=== PATIENT | female | born 1940 | race Caucasian/White ===

== ENCOUNTER 2018-05-14 11:44 | Outpatient (RCR) | payer MEDICARE, OTHER ==
[2018-05-14 12:18] LABS: PROTHROMBIN TIME PATIENT 28.7 SEC (12.2-14.7)
[2018-05-14 12:19] LABS: INR 2.7 (0.8-1.4)
== END 2018-08-12 | disposition home or self-care (01) ==
LOC: LAB FS 11:44 → EDSTATUS 11:44
PROVIDERS: ATTEND Pediatrics
DX: I48.0 Paroxysmal atrial fibrillation (principal)
CPT/HCPCS: 36415; 85610

== ENCOUNTER → 2018-09-17 | Outpatient (CLI) | payer MEDICARE, OTHER ==
[2018-09-17 11:50] LABS: HEMOGLOBIN 11.8 G/DL (11.5-16.0); MEAN PLATELET VOLUME 10.3 FL (7.4-10.4); RED CELL DISTRIBUTION WIDTH 17.3 % (10.0-14.5); WHITE BLOOD COUNT 4.7 10^3/uL (4.3-11.0)
[2018-09-17 12:26] LABS: BILIRUBIN,DIRECT 0.2 MG/DL (0.0-0.3); BILIRUBIN,INDIRECT 0.3 MG/DL; BILIRUBIN,TOTAL 0.5 MG/DL (0.1-1.0); TOTAL PROTEIN 6.8 GM/DL (6.4-8.2)
== END ==
LOC: LAB 11:33
PROVIDERS: ATTEND Internal Medicine Rheumatology
DX: M05.79 Rheumatoid arthritis with rheumatoid factor of multiple sites without organ or systems involvement (principal); Z79.899 Other long term (current) drug therapy
CPT/HCPCS: 36415; 80076; 85027

== ENCOUNTER → 2018-11-21 | Outpatient (CLI) | payer MEDICARE, OTHER | LOC: CARD 13:45 | PROVIDERS: ATTEND Internal Medicine Interventional Cardiology | DX: I08.2 Rheumatic disorders of both aortic and tricuspid valves (principal); I48.0 Paroxysmal atrial fibrillation; I25.10 Atherosclerotic heart disease of native coronary artery without angina pectoris | CPT/HCPCS: 93306 ==

== ENCOUNTER → 2018-11-21 | Outpatient (CLI) | payer MEDICARE, OTHER ==
--- NOTE | 2018-11-21 19:10 | Diagnostic Imaging Report ---
PROCEDURE: US Thyroid. TECHNIQUE: Multiple real-time grayscale images were obtained of the thyroid in various projections. INDICATION: Goiter. COMPARISON: There are no prior studies available for comparison. FINDINGS: The thyroid gland is not enlarged. The right lobe measures 1.7 x 1.1 x 0.8 cm while the left lobe is estimated to be 3.3 x 0.9 x 0.7 cm (normal gland size 4-5 x 2 x cm or less). Within the left lobe there is a 1.0 x 0.5 x 0.5 cm solid lesion. This finding is of uncertain etiology. If further imaging is desired, then a nuclear medicine thyroid scan would be recommended. If a tissue diagnosis is desired, an ultrasound-guided biopsy could be performed. If the nuclear medicine study is not performed and there is no intervention at this time, then a short-term (6-month) followup thyroid ultrasound exam would be recommended. The right lobe of the thyroid is fairly homogeneous. IMPRESSION: 1. There is a roughly 1 cm solid nodule in the left lobe of the thyroid. This finding is of uncertain etiology. Considerations and recommendations as above. 2. The right lobe of the thyroid is unremarkable. Dictated by: Dictated on workstation # [id number]
== END ==
LOC: RAD 12:55
PROVIDERS: ATTEND Otolaryngology Otolaryngology/Facial Plastic Surgery
DX: E04.1 Nontoxic single thyroid nodule (principal)
CPT/HCPCS: 76536

== ENCOUNTER → 2018-12-06 | Outpatient (CLI) | payer MEDICARE, OTHER ==
[2018-12-06 12:09] LABS: BACTERIA,URINE FEW /HPF; BILIRUBIN,URINE NEGATIVE (NEGATIVE); CLARITY,URINE CLEAR; COLOR,URINE YELLOW; GLUCOSE, URINE (UA) NEGATIVE (NEGATIVE); KETONES,URINE NEGATIVE (NEGATIVE); LEUKOCYTE ESTERASE ,URINE NEGATIVE (NEGATIVE); NITRITE,URINE NEGATIVE (NEGATIVE); PH,URINE 7.5 (5-9); PROTEIN,URINE NEGATIVE (NEGATIVE); UROBILINOGEN,URINE 0.2 MG/DL (NORMAL)
== END ==
LOC: LAB FS 11:51
PROVIDERS: ATTEND Pediatrics
DX: R30.0 Dysuria (principal)
CPT/HCPCS: 81000

== ENCOUNTER → 2018-12-23 | Outpatient (CLI) | payer MEDICARE, OTHER ==
[~2018-12-23] MED LIST: CARV12.53 PO; CATHETER FLUSH 10 ML SYR IV PRN; COLC0.6T53 PO; CYCL1DRO OU; DIATRIZOATE MEGLUM/SODIUM 37% 120 ML (GASTROGRAFIN) PO ONE; FOLI1TAB24 PO; HOLD METFORMIN - RECEIVED CONTRAST 20 ML VIAL IV SCH; IOHEXOL 350 MG/ML 100 ML (OMNIPAQUE 350) VIAL IV ONE; LEVO125T6 PO; LOSA50TA63 PO; METH25VI57 SQ; METO5TAB6 PO; NS 100 ML (IVPB) BAG IV ONE; POTA10TA52 PO; POTA20TA28 PO; WARF-48 PO; WARF7.5T49 PO
--- NOTE | 2018-12-23 17:29 | Diagnostic Imaging Report ---
PROCEDURE: CT chest, abdomen, and pelvis with contrast. TECHNIQUE: Multiple contiguous axial images were obtained through the chest, abdomen, and pelvis after the administration of intravenous contrast. Auto Exposure Controls were utilized during the CT exam to meet ALARA standards for radiation dose reduction. INDICATION: Night sweats. Fatigue. COMPARISON: None. FINDINGS: CHEST: Calcified granuloma in the right lung base. The lungs are otherwise clear. Tiny right pleural effusion. No mediastinal, hilar, or axillary lymphadenopathy. Normal heart size. No pericardial effusion. Cardiac pacer. Normal caliber thoracic aorta and central pulmonary arteries. No acute osseous findings. ABDOMEN AND PELVIS: Cholecystectomy. Multiple low-attenuation lesions in the pancreas. The largest of these is in the head of the pancreas and measures up to 1.2 cm. The second largest is in the tail of the pancreas and measures up to 0.9 cm. The liver, pancreas, adrenals, kidneys, collecting systems, and bladder are negative. Appendectomy. Hysterectomy. Small umbilical hernia measuring up to 2 cm in width. This contains no bowel loops. No lymphadenopathy. No evidence of bowel obstruction. There is focal bowel wall thickening in the mid descending colon and adjacent hyperemia. There is also soft tissue attenuation that appears to demonstrate washout on delayed imaging suspicious for a soft tissue mass intraluminally measuring up to 4.3 cm. Postoperative changes in the lumbar spine. No acute osseous findings. IMPRESSION: 1. Focal bowel wall thickening and soft tissue attenuation within the colon suspicious for a mass in the mid descending colon. Recommend endoscopy for further evaluation. No lymphadenopathy, liver lesions, or lung nodules suspicious for metastatic disease. There is diffuse hyperemia of the mesentery in this region. 2. Numerous low-attenuation lesions in the pancreas are indeterminate. Metastatic disease would be unlikely. Recommend nonemergent dedicated MRI without and with IV contrast for further evaluation. 3. No acute CT findings in the chest. Dictated by: Dictated on workstation # [id number]
== END ==
LOC: RAD 15:00
PROVIDERS: ATTEND Pediatrics
DX: K63.89 Other specified diseases of intestine (principal); K86.9 Disease of pancreas, unspecified; K59.8 Other specified functional intestinal disorders
CPT/HCPCS: 71260; 74177

== ENCOUNTER 2018-12-25 06:06 | Outpatient (CLI) | payer MEDICARE, OTHER ==
[~2018-12-25] VITALS: Ht 172.7 cm; Wt 75.0 kg
[2018-12-25] MEDS ORDERED: FOLI1TAB24 PO (09:17)
[2018-12-25] MEDS ORDERED: METO5TAB6 PO (09:17)
[2018-12-25] MEDS ORDERED: CARV12.53 PO (09:17)
[2018-12-25] MEDS ORDERED: POTA20TA28 PO (09:17)
[2018-12-25] MEDS ORDERED: WARF7.5T49 PO (09:17)
[2018-12-25] MEDS ORDERED: METH25VI57 SQ (09:17)
[2018-12-25] MEDS ORDERED: WARF-48 PO (09:17)
[2018-12-25] MEDS ORDERED: COLC0.6T53 PO (09:17)
[2018-12-25] MEDS ORDERED: LOSA50TA63 PO (09:17)
[2018-12-25] MEDS ORDERED: CYCL1DRO OU (09:17)
[2018-12-25] MEDS ORDERED: LEVO125T6 PO (09:17)
[2018-12-25] MEDS ORDERED: POTA10TA52 PO (09:17)
== END 2018-12-25 10:26 | disposition home or self-care (01) ==
LOC: PREOP 06:06
PROVIDERS: ATTEND Pediatrics
DX: Z01.818 Encounter for other preprocedural examination (principal)

== ENCOUNTER 2018-12-26 07:23 | Day surgery (SDC) | payer MEDICARE, OTHER ==
[2018-12-26] VITALS (10 sets, daily range): BP systolic 115–164; BP diastolic 67–89
[~2018-12-26 07:23] MED LIST changes: -CATHETER FLUSH 10 ML SYR IV PRN; -DIATRIZOATE MEGLUM/SODIUM 37% 120 ML (GASTROGRAFIN) PO ONE; -HOLD METFORMIN - RECEIVED CONTRAST 20 ML VIAL IV SCH; -IOHEXOL 350 MG/ML 100 ML (OMNIPAQUE 350) VIAL IV ONE; -NS 100 ML (IVPB) BAG IV ONE
[2018-12-26] MEDS ORDERED: NS IV 500 ML 500 ML ONE (07:34)
[2018-12-26] MEDS ORDERED: NS IV 500 ML 500 ML IV PRN (07:41)
[2018-12-26] MEDS ORDERED: MIDAZOLAM 2 MG/2 ML (VERSED) VIAL IVP ONE (07:45)
[2018-12-26] MEDS ORDERED: fentaNYL INJECTION 100 MCG/2 ML AMP IVP ONE (07:45)
[2018-12-26] MEDS ORDERED: MIDAZOLAM 5 MG/5 ML (VERSED) VIAL ONE (08:24)
[2018-12-26] MEDS ORDERED: fentaNYL INJECTION 100 MCG/2 ML AMP ONE (08:24)
--- NOTE | 2018-12-26 08:47 | Endoscopy Procedure Report ---
Colonoscopy Procedure Performed: Colonoscopy Pre-Operative Diagnosis: thickned bowel by CT Post-Operative Diagnosis: non Director Of Corporate Marketing: None. Indications for Procedure: as above Procedure Details: Informed consent was obtained, the risks, benefits and alternatives to the procedure were explained to the patient. The Alejandra Mack, a 78 yr old female, was brought to to surgery area, sedated with 4 mg of Versed and 100 ug of fentanyl. She was placed in the left lateral decubitus position. Under direct visualization the scope was passed easily to the hepatic flexure by landmarks. despite body position change and pressure unableto advance scope further Scope was carefully withdrawn. Findings: Ascending Colon: not seen as scope only able to be advanced to hepatic flexure Transverse Colon: none Descending/Sigmoid: none Rectum: none Estimated Blood Loss: 0 mL Specimens: none Complications: None; patient tolerated the procedure well. Final Diagnosis: essentailly normal colonoscopy to hepatic flexure MILAN MCGRAW MD Dec 26, 2018 08:47
== END 2018-12-26 09:35 | disposition home or self-care (01) ==
LOC: ENDO 07:23
PROVIDERS: ATTEND Pediatrics
DX: K63.89 Other specified diseases of intestine (principal); E03.9 Hypothyroidism, unspecified; K76.89 Other specified diseases of liver; Z20.5 Contact with and (suspected) exposure to viral hepatitis; Z88.5 Allergy status to narcotic agent; Z88.8 Allergy status to other drugs, medicaments and biological substances; Z88.1 Allergy status to other antibiotic agents; Z91.040 Latex allergy status; Z79.01 Long term (current) use of anticoagulants; Z79.899 Other long term (current) drug therapy

== ENCOUNTER → 2019-01-17 | Outpatient (CLI) | payer MEDICARE, OTHER ==
[2019-01-17 12:18] LABS: HEMOGLOBIN 10.9 G/DL (11.5-16.0); MEAN PLATELET VOLUME 10.7 FL (7.4-10.4); RED CELL DISTRIBUTION WIDTH 17.6 % (10.0-14.5); WHITE BLOOD COUNT 4.4 10^3/uL (4.3-11.0)
[2019-01-17 12:20] LABS: BILIRUBIN,URINE NEGATIVE (NEGATIVE); CLARITY,URINE CLEAR; COLOR,URINE YELLOW; GLUCOSE, URINE (UA) NEGATIVE (NEGATIVE); KETONES,URINE NEGATIVE (NEGATIVE); LEUKOCYTE ESTERASE ,URINE 1+ (NEGATIVE); NITRITE,URINE NEGATIVE (NEGATIVE); PH,URINE 8 (5-9); PROTEIN,URINE NEGATIVE (NEGATIVE)
[2019-01-17 12:36] LABS: BACTERIA,URINE FEW /HPF
[2019-01-17 12:45] LABS: ALANINE AMINOTRANSFERASE 23 U/L (0-55); ALBUMIN 3.6 GM/DL (3.2-4.5); ALKALINE PHOSPHATASE 92 U/L (40-136); BILIRUBIN,TOTAL 0.7 MG/DL (0.1-1.0); BUN/CREATININE RATIO 14; CARBON DIOXIDE 32 MMOL/L (21-32); CHLORIDE 97 MMOL/L (98-107); CREATININE SERUM 0.73 MG/DL (0.60-1.30); GFR ESTIMATED > 60; GLUCOSE 82 MG/DL (70-105); POTASSIUM 3.7 MMOL/L (3.6-5.0); SODIUM 136 MMOL/L (135-145); TOTAL PROTEIN 6.3 GM/DL (6.4-8.2)
--- NOTE | 2019-01-17 12:51 | Diagnostic Imaging Report ---
EXAMINATION: Chest one view at 12:30 p.m. INDICATION: Rheumatoid arthritis. FINDINGS: The heart size is within normal limits and stable when compared to the CT chest exam performed on 12/23/2018. The left-sided pacemaker noted previously is again evident and seems stable in position. The lungs are generally clear. There is no evidence for pneumonia or failure. However, there is slight blunting of both costophrenic angles and there could be a small amount of fluid in each lung base. This finding was not present on the prior exam. The mediastinum is not widened. The osseous structures are intact. IMPRESSION: There may be a small amount of fluid in each lung base. There is no acute cardiopulmonary abnormality noted otherwise. Dictated by: Dictated on workstation # [id number]
== END ==
LOC: RAD 11:52
PROVIDERS: ATTEND Internal Medicine Rheumatology
DX: M05.79 Rheumatoid arthritis with rheumatoid factor of multiple sites without organ or systems involvement (principal); Z95.0 Presence of cardiac pacemaker
CPT/HCPCS: 36415; 71045; 80053; 81000; 84443; 85027; 85652; 86038; 86141; 86200; 86431; 87077; 87088

== ENCOUNTER 2019-01-30 04:32 | Emergency (ER) | payer MEDICARE, OTHER ==
[~2019-01-30] VITALS: Ht 175 cm; Wt 75.0 kg
--- NOTE | 2019-01-30 04:52 | ED General ---
General Chief Complaint: Trauma-Non Activation Stated Complaint: FALL, BACK PAIN Source of Information: Patient Exam Limitations: No Limitations History of Present Illness Date Seen by Provider: Jan 30, 2019 Time Seen by Provider: 04:45 Initial Comments Patient presents by EMS with complaint that she had fallen and couldn't get up. Patient was in bed and rolled over, and states she rolled out of bed on the floor. States she did not hurt herself but was too weak to get up and laid there for a while before her was aware that she needed help. He was unable to get her up, so they called 911. Patient with history of arthritis and generalized joint pain and spinal pain, states no worse than normal. Overall has been getting progressively weaker the past few months, has seen her PCP and been evaluated with blood work with no abnormalities. Allergies and Home Medications Allergies Coded Allergies: ciprofloxacin (Verified Allergy, Unknown, 12/25/18) clindamycin (Verified Allergy, Unknown, 12/25/18) hydralazine (Verified Allergy, Unknown, 12/25/18) isradipine (Verified Allergy, Unknown, 12/25/18) latex (Verified Allergy, Unknown, 12/25/18) lisinopril (Verified Allergy, Unknown, 12/25/18) morphine (Verified Allergy, Unknown, 12/25/18) nifedipine (Verified Allergy, Unknown, 12/25/18) spironolactone (Verified Allergy, Unknown, 12/25/18) tizanidine (Verified Allergy, Unknown, 12/25/18) warfarin (Verified Allergy, Unknown, 12/25/18) Home Medications Carvedilol 12.5 Mg Tablet, 12.5 MG PO BID, (Reported) Colchicine 0.6 Mg Tablet, 0.6 MG PO DAILY, (Reported) Cyclosporine 1 Each Droperette, 1 DROP OU BID, (Reported) Folic Acid 1 Mg Tablet, 1 MG PO DAILY, (Reported) Levothyroxine Sodium 125 Mcg Tablet, 125 MCG PO DAILY, (Reported) Losartan Potassium 50 Mg Tablet, 50 MG PO DAILY, (Reported) Methotrexate Sodium 25 Mg/1 Ml Vial, 6 MG SQ WEEK, (Reported) Metolazone 5 Mg Tablet, 5 MG PO DAILY, (Reported) Potassium Bicarbonate/Cit AC 10 Meq Tablet.eff, 10 MEQ PO BID, (Reported) Potassium Bicarbonate/Cit AC 20 Meq Tablet.eff, 20 MEQ PO BID, (Reported) Warfarin Sodium 5 Mg Tablet, 5 MG PO MoWeFr, (Reported) Warfarin Sodium 7.5 Mg Tablet, 7.5 MG PO SuTuThSa, (Reported) Patient Home Medication List Home Medication List Reviewed: Yes Review of Systems Review of Systems Constitutional: No chills, No dizziness, No fever, No malaise; weakness; No weight gain, No weight loss EENTM: No hoarseness, No throat pain Respiratory: No cough, No dyspnea on exertion, No short of breath Cardiovascular: No chest pain, No palpitations, No syncope Gastrointestinal: No abdominal pain, No hematemesis, No loss of appetite, No nausea, No vomiting Genitourinary: No dysuria, No frequency Musculoskeletal: see HPI, back pain, joint pain, muscle weakness, neck pain Skin: No change in color, No lesions, No rash Psychiatric/Neurological: Denies Headache, Denies Numbness, Denies Paresthesia, Denies Seizure; Weakness Past [id number]-[id number]-[id number] Hx Past Med/Social Hx: Reviewed Nursing Past Med/Soc Hx Patient Social History Recent Foreign Travel: No Contact w/Someone Who Travel: No Recent Hopitalizations: No Seasonal Allergies Seasonal Allergies: No Past Medical History Surgeries: Yes (R TKR x3, L TKR, ) Gallbladder, Hysterectomy, Oophorectomy, Pacemaker, Tonsillectomy Respiratory: No Cardiac: Yes (pacemaker) Hypertension Neurological: No SOUS CHEF History: Hysterectomy Genitourinary: Yes Gastrointestinal: Yes Gastroesophageal Reflux, Chronic Constipation, Chronic Diarrhea Musculoskeletal: Yes Arthritis, Fibromyalgia, Rheumatoid Arthritis Endocrine: Yes Hypothyroidsim HEENT: Yes Cancer: Yes Skin What Type of Treatment Did You: Surgical Intervention Psychosocial: No Integumentary: No Physical Exam Vital Signs Vital Signs - First Documented 01/30/19 04:32 Temp 37.5 Pulse 82 Resp 16 B/P (MAP) 139/59 (85) Pulse Ox 98 O2 Delivery Room Air Capillary Refill : Height, Weight, BMI Height: '" Weight: 200lbs. oz. 90.675386rk; 25.14 BMI Method: General Appearance: No Apparent Distress, WD/WN HEENT: Normal ENT Inspection, Pharynx Normal, Moist Mucous Membranes Neck: Normal Inspection, Non Tender, Supple Respiratory: Chest Non Tender, Lungs Clear, Normal Breath Sounds Cardiovascular: Regular Rate, Rhythm, No Edema, No JVD, No Murmur Gastrointestinal: Normal Bowel Sounds, Non Tender, Soft Back: Normal Inspection, No CVA Tenderness, No Vertebral Tenderness Extremity: Normal Capillary Refill, Normal Inspection, Non Tender, No Calf Tenderness, No Pedal Edema Neurologic/Psychiatric: Alert, Oriented x3, No Motor/Sensory Deficits, Normal Mood/Affect, e commerce web developer II-XII Norm as Tested Skin: Normal Color, Warm/Dry Focused Exam Lactate Level 01/30/19 05:35: Lactic Acid Level Laboratory Tests Test 01/30/19 05:35 Progress/Results/Core Measures Suspected Sepsis SIRS Temperature: Pulse: Respiratory Rate: Laboratory Tests 01/30/19 05:08: White Blood Count 7.5 Blood Pressure / Mean: 01/30/19 05:35: Laboratory Tests 01/30/19 05:08: Platelet Count 87L Results/Orders Lab Results Laboratory Tests Test 01/30/19 05:08 01/30/19 05:35 Range/Units White Blood Count 7.5 4.3-11.0 10^3/uL Red Blood Count 4.16 L 4.35-5.85 10^6/uL Hemoglobin 11.3 L 11.5-16.0 G/DL Hematocrit 35 35-52 % Mean Corpuscular Volume 85 80-99 FL Mean Corpuscular Hemoglobin 27 25-34 PG Mean Corpuscular Hemoglobin Concent 32 32-36 G/DL Red Cell Distribution Width 19.1 H 10.0-14.5 % Platelet Count 87 L 130-400 10^3/uL Mean Platelet Volume 12.4 H 7.4-10.4 FL Neutrophils (%) (Auto) 72 42-75 % Lymphocytes (%) (Auto) 15 12-44 % Monocytes (%) (Auto) 12 0-12 % Eosinophils (%) (Auto) 0 0-10 % Basophils (%) (Auto) 0 0-10 % Neutrophils # (Auto) 5.4 1.8-7.8 X 10^3 Lymphocytes # (Auto) 1.1 1.0-4.0 X 10^3 Monocytes # (Auto) 0.9 0.0-1.0 X 10^3 Eosinophils # (Auto) 0.0 0.0-0.3 10^3/uL Basophils # (Auto) 0.0 0.0-0.1 10^3/uL Urine Color YELLOW Urine Clarity CLEAR Urine pH 7.5 5-9 Urine Specific [place] 1.015 L 1.016-1.022 Urine Protein TRACE H NEGATIVE Urine Glucose (UA) NEGATIVE NEGATIVE Urine Ketones NEGATIVE NEGATIVE Urine Nitrite NEGATIVE NEGATIVE Urine Bilirubin NEGATIVE NEGATIVE Urine Urobilinogen 0.2 NORMAL MG/DL Urine Leukocyte Esterase NEGATIVE NEGATIVE Urine RBC (Auto) NEGATIVE NEGATIVE Urine RBC NONE /HPF Urine WBC 0-2 /HPF Urine Squamous Epithelial Cells 2-5 /HPF Urine Crystals NONE /LPF Urine Bacteria TRACE /HPF Urine Casts NONE /LPF Urine Mucus NONE /LPF Urine Culture Indicated NO My Orders Orders - SCOTT GALE DO Ed Iv/Invasive Line Start (01/30/19 04:46) Orthostatic Vital Signs (Adult (01/30/19 04:46) Cbc With Automated Diff (01/30/19 04:46) Comprehensive Metabolic Panel (01/30/19 04:46) Lactic Acid Analyzer (01/30/19 04:46) Urinalysis (01/30/19 04:46) Troponin I Fs (01/30/19 04:46) Ct Head Wo (01/30/19 04:46) Vital Signs/I&O 01/30/19 01/30/19 01/30/19 01/30/19 04:32 05:15 05:15 05:29 Temp 37.5 37.4 Pulse 82 80 80 82 80 84 Resp 16 18 B/P (MAP) 139/59 (85) 129/69 (89) 129/69 (89) 129/69 122/60 (80) 113/67 (82) Pulse Ox 98 O2 Delivery Room Air Room Air Capillary Refill : Progress Note : Progress Note discussed normal labs and CT w pt and her . Asked if they were interested in transitioning to assisted living arrangement and they adamantly said , NO. They state that they have an appointment today w her Brimmer Blocker and they would discuss the weakness. Departure Impression Primary Impression: Weakness Disposition: 01 HOME, SELF-CARE Condition: Stable Departure-Patient Inst. Decision time for Depature: 05:55 Referrals: MILAN MCGRAW MD (PCP/Family) Primary Care Physician Patient Instructions: Generalized Weakness SCOTT GALE DO Jan 30, 2019 04:52 POS
[2019-01-30 05:15] VITALS: BP_SYST 113; BP_SYST 122; BP_SYST 129; BP_DIAS 60; BP_DIAS 67; BP_DIAS 69
[2019-01-30 05:33] LABS: BASOPHILS % (AUTO) 0 % (0-10); EOSINOPHILS % (AUTO) 0 % (0-10); HEMATOCRIT 35 % (35-52); HEMOGLOBIN 11.3 G/DL (11.5-16.0); LYMPHOCYTES % (AUTO) 15 % (12-44); MEAN CORPUSCULAR HEMOGLOBIN 27 PG (25-34); MEAN CORPUSCULAR HGB CONC 32 G/DL (32-36); MEAN CORPUSCULAR VOLUME 85 FL (80-99); MEAN PLATELET VOLUME 12.4 FL (7.4-10.4); MONOCYTES % (AUTO) 12 % (0-12); NEUTROPHILS % (AUTO) 72 % (42-75); PLATELET COUNT 87 10^3/uL (130-400); RED CELL DISTRIBUTION WIDTH 19.1 % (10.0-14.5); WHITE BLOOD COUNT 7.5 10^3/uL (4.3-11.0)
[2019-01-30 05:34] LABS: LYMPHOCYTES # (AUTO) 1.1 X 10^3 (1.0-4.0); MONOCYTES # (AUTO) 0.9 X 10^3 (0.0-1.0); NEUTROPHILS # (AUTO) 5.4 X 10^3 (1.8-7.8)
[2019-01-30 05:38] LABS: BILIRUBIN,URINE NEGATIVE (NEGATIVE); CLARITY,URINE CLEAR; COLOR,URINE YELLOW; GLUCOSE, URINE (UA) NEGATIVE (NEGATIVE); KETONES,URINE NEGATIVE (NEGATIVE); LEUKOCYTE ESTERASE ,URINE NEGATIVE (NEGATIVE); NITRITE,URINE NEGATIVE (NEGATIVE); PH,URINE 7.5 (5-9); PROTEIN,URINE TRACE (NEGATIVE)
[2019-01-30 05:39] LABS: BACTERIA,URINE TRACE /HPF; WBC,URINE 0-2 /HPF
[2019-01-30 05:55] VITALS: BP 129/69
[2019-01-30 05:56] LABS: ALANINE AMINOTRANSFERASE 25 U/L (0-55); ALKALINE PHOSPHATASE 71 U/L (40-136); BILIRUBIN,TOTAL 0.7 MG/DL (0.1-1.0); BUN/CREATININE RATIO 33; CALCIUM 8.4 MG/DL (8.5-10.1); CARBON DIOXIDE 27 MMOL/L (21-32); CHLORIDE 95 MMOL/L (98-107); CREATININE SERUM 0.88 MG/DL (0.60-1.30); GFR ESTIMATED > 60; GLUCOSE 110 MG/DL (70-105); POTASSIUM 4.1 MMOL/L (3.6-5.0); SODIUM 133 MMOL/L (135-145)
[2019-01-30 05:57] LABS: ALBUMIN 3.4 GM/DL (3.2-4.5); TOTAL PROTEIN 5.7 GM/DL (6.4-8.2)
--- NOTE | 2019-01-30 06:05 | Diagnostic Imaging Report ---
PROCEDURE: CT head without contrast. TECHNIQUE: Multiple contiguous axial images were obtained through the brain without the use of intravenous contrast. Auto Exposure Controls were utilized during the CT exam to meet ALARA standards for radiation dose reduction. INDICATION: Head pain after fall. No prior examination available for comparison. FINDINGS: There is prominence of the ventricles and sulci. There is no hydrocephalus or cerebral edema. There is no midline shift or mass-effect. There is no intracranial mass, hemorrhage, or extra-axial fluid collection. There is some diffuse decreased attenuation of the periventricular white matter which is nonspecific. The visualized paranasal sinuses and mastoid air cells are clear. There are no regional areas of decreased attenuation appreciated to suggest an acute CVA. IMPRESSION: 1. No acute intracranial process. 2. Age-appropriate atrophy. 3. Decreased attenuation of the periventricular white matter which is nonspecific, however, likely reflects senescent change and/or chronic small vessel ischemic disease. Dictated by: Dictated on workstation # [id number]
== END 2019-01-30 06:10 | disposition home or self-care (01) ==
LOC: EDUNIT# 04:32 → ER FS 04:35
DX: R53.1 Weakness (principal); I10 Essential (primary) hypertension; K21.9 Gastro-esophageal reflux disease without esophagitis; M79.7 Fibromyalgia; M06.9 Rheumatoid arthritis, unspecified; E03.9 Hypothyroidism, unspecified; Z85.828 Personal history of other malignant neoplasm of skin; Z90.89 Acquired absence of other organs; Z90.710 Acquired absence of both cervix and uterus; Z96.653 Presence of artificial knee joint, bilateral; Z95.0 Presence of cardiac pacemaker; Z79.01 Long term (current) use of anticoagulants; Z88.1 Allergy status to other antibiotic agents; Z91.040 Latex allergy status; Z88.5 Allergy status to narcotic agent; Z88.8 Allergy status to other drugs, medicaments and biological substances; W06.XXXA Fall from bed, initial encounter
CPT/HCPCS: 36415; 70450; 80053; 81000; 83605; 84484; 85025

== ENCOUNTER → 2019-05-09 | Outpatient (CLI) | payer MEDICARE, OTHER ==
--- NOTE | 2019-05-09 11:39 | Diagnostic Imaging Report ---
PROCEDURE: US Thyroid. TECHNIQUE: Multiple real-time grayscale images were obtained of the thyroid in various projections. INDICATION: Thyroid nodule. FINDINGS: The previous thyroid ultrasound exam of 11/21/2018 noted a 1.0 x 0.5 x 0.5 cm solid nodule within the left lobe of the thyroid. That finding is again evident and does not appear to have changed significantly in size or appearance. The stability of this finding over a roughly 6-month period would suggest it is not related to an aggressive neoplastic process. It may prove worthwhile to have another 6 month follow-up exam for continued evaluation. The thyroid gland itself is not enlarged with the right lobe measuring 2.9 x 1.0 x 1.0 cm and the left lobe is estimated 2.7 x 0.8 x 0.8 cm (normal 45 x 2 x 2 cm or less). No new abnormality has developed otherwise. IMPRESSION: 1. The roughly 1 cm nodule in the left lobe of the thyroid seen previously is again evident and appears stable. Most likely this is a benign process. Recommendations as above. 2. The overall appearance of the thyroid gland is otherwise stable as well. Dictated by: Dictated on workstation # [id number]
== END ==
LOC: RAD 09:34
PROVIDERS: ATTEND Otolaryngology Otolaryngology/Facial Plastic Surgery
DX: E04.1 Nontoxic single thyroid nodule (principal)
CPT/HCPCS: 76536

== ENCOUNTER → 2020-04-19 | Outpatient (CLI) | payer MEDICARE, OTHER ==
[~2020-04-19] MED LIST changes: -FOLI1TAB24 PO; +FOLI1TAB33 PO; +WARF7.5T3 PO; -WARF7.5T49 PO
--- NOTE | 2020-04-19 10:56 | Diagnostic Imaging Report ---
PROCEDURE: US Thyroid. TECHNIQUE: Multiple real-time grayscale images were obtained of the thyroid in various projections. INDICATION: Thyroid nodule. Compared to 05/09/2019, also 11/21/2018. FINDINGS: Right thyroid lobe measured 2.3 x 1.0 x 0.8 cm and appear nonfocal. The left lobe 3.3 x 0.9 x 0.9 cm. There is a new tiny cyst 3 mm, is a benign finding in the left upper pole. A predominantly iso to slightly hypoechoic nodule in the midpole of the left thyroid lobe measured 1 cm unchanged. No abnormal or suspect calcifications. No abnormal color Doppler blood flow. IMPRESSION: Stable, benign, left lobe nodule. New tiny benign left lobe cyst. No suspicious lesion or adverse development. Dictated by: Dictated on workstation # [id number]
== END ==
LOC: RAD FS 09:45
PROVIDERS: ATTEND Otolaryngology Otolaryngology/Facial Plastic Surgery
DX: E04.1 Nontoxic single thyroid nodule (principal)
CPT/HCPCS: 76536

== ENCOUNTER 2020-05-18 13:00 | Day surgery (SDC) | payer MEDICARE, OTHER ==
[~2020-05-18] VITALS: Ht 174 cm; Wt 84.0 kg
[2020-05-18] VITALS (10 sets, daily range): BP systolic 120–143; BP diastolic 56–80
[2020-05-18 11:23] LABS: HEMOGLOBIN 13.2 g/dL (11.5-16.0); MEAN PLATELET VOLUME 12.1 fL (9.0-12.2)
[2020-05-18 11:36] LABS: PROTHROMBIN TIME PATIENT 22.7 SEC (12.2-14.7)
[2020-05-18 11:45] LABS: ALANINE AMINOTRANSFERASE 21 U/L (0-55); ALKALINE PHOSPHATASE 63 U/L (40-136); BUN/CREATININE RATIO 21; CALCIUM 9.2 MG/DL (8.5-10.1); CARBON DIOXIDE 26 MMOL/L (21-32); CHLORIDE 104 MMOL/L (98-107); CHOLESTEROL 178 MG/DL (< 200); GFR ESTIMATED > 60; GLUCOSE 104 MG/DL (70-105); HDL CHOLESTEROL 64 MG/DL (40-60); POTASSIUM 3.6 MMOL/L (3.6-5.0); SODIUM 140 MMOL/L (135-145); TOTAL PROTEIN 6.5 GM/DL (6.4-8.2); TRIGLYCERIDES 161 MG/DL (<150); VLDL CHOLESTEROL 32 MG/DL (5-40)
[~2020-05-18 13:00] MED LIST changes: +APRE1TAB2 PO; +CALC-654 PO; +CHOL200014 PO; +EST5V5 IM; +FLAX10004 PO; +GOLI50PE SQ; +HEParin (CATH LAB) 2,000 ML IV ONE; +HYDR-3820 PO; +LIDOCAINE 1% INJ 20 ML 20 ML VIAL ONE; +MAGN400T39 PO; +NITR0.4T39 SL; +NS IV 1000 ML 1,000 ML IV SCH; +NS IV 1000 ML 1,000 ML ONE; +OMEP40CA27 PO; +PRD10T PO; +PYRI100T10 PO; +RT-ALBUINH INH
--- NOTE | 2020-05-18 13:12 | Cardiac Procedure Note-CS/ASA ---
Pre-Procedure Note Pre-Op Procedure Note H&P Reviewed The H&P was reviewed, patient examined and no changes noted. Date H&P Reviewed: May 18, 2020 Time H&P Reviewed: 12:45 Conscious Sedation Pre-Proced Time 12:45 ASA Score 3 For ASA 3 and 4: Consider anesthesia and medical clearance. Also, for patients with a history of failed moderate sedation consider anesthesia. Airway Lungs Heart ASA score ASA 1: a normal healthy patient ASA 2: a patient with a mild systemic disease (mid diabetes, controlled hypertension, obesity ASA 3: a patient with a severe systemic disease that limits activity (angina, COPD, prior Myocardial infarction) ASA 4: a patient with an incapacitating disease that is a constant threat to life (CHF, renal failure) ASA 5: a moribund patient not expected to survive 24 hrs. (ruptured aneurysm) ASA 6: a declared brain- patient whose organs are being harvested. For emergent operations, add the letter E after the classification Mallampati Classification Grade 2 Sedation Plan Analgesia, Amnesia, Plan communicated to team members, Discussed options with patient/fam, Discussed risks with patient/fam The patient is an appropriate candidate to undergo the planned procedure, sedation, and anesthesia. The patient immediately re-assessed prior to indication. DAVID GRACE MD FACP FAC CCDS May 18, 2020 13:12
[2020-05-18] MEDS ORDERED: NS IV 1000 ML 1,000 ML IV SCH (13:15)
[2020-05-18] MEDS ORDERED: PATIENT MAY USE OWN MEDS, ALL PO SCH (13:15)
--- NOTE | 2020-05-18 13:17 | Discharge Inst-Post CATH ---
Discharge Inst-CATH/EP Post Cardiac Cath/EP D/C Inst Follow Up/Plan F/u with Dr Mederos in 2 weeeks ACTIVITY * Go Home directly and rest. * Limit activity of the leg (or wrist if it was used) for 7 days including aerobics, swimming, jogging, bicycling, etc. * Restrict stair-climbing for 7 days if possible, if not, climb up with your non-cath leg, then bring together on the same step. * Avoid lifting, pushing, pulling or excessive movement of the affected e xtremity for 7 days. * Customary sexual activity may be resumed after 2 days-use caution not to use a position that strains or causes pain to the affected extremity. * No driving for 24 hours. * NO SMOKING. * Avoid straining for bowel movements for 7 days. * Gentle walking on level ground is allowed. * Returning to work will depend on the type of procedure and the results. Your doctor will discuss this with you. CALL YOUR DOCTOR FOR ANY OF THE FOLLOWING: *If bleeding from the puncture site occurs- Apply gentle pressure to site with clean cloth and call your doctor or EMS. * If a knot or lump forms under the skin, increases in size, or causes pain. * If bruising appears to be worsening or moving further down your leg instead of disappearing. * Temperature above 101 F. CARE OF YOUR GROIN INCISION; * Bruising or purple discoloration of the skin near the puncture site is common. * You may shower only, no bathtub bathing for 5 days. Be careful to avoid slipping as your leg may feel stiff. * If a closure device was used on your femoral artery, please see the attached guide regarding care of the device and your leg. * Leave dressing on FOR 24 hours. CARE OF YOUR WRIST INCISION; * Bruising or purple discoloration of the skin near the puncture site is common. * You may shower. * DO NOT submerge wrist. * Leave dressing on FOR 24 hours. DAVID MEDEROS MD FACP FAC CCDS May 18, 2020 13:17
--- NOTE | 2020-05-18 13:17 | Discharge Inst-Cardiology ---
Discharge Inst-Cardiac Discharge Medications Continued Medications: Albuterol Sulfate (Ventolin Hfa) 1 Puff Puff 2 PUFF INH Q4H PRN for SHORTNESS OF BREATH, PUFF Apremilast (Otezla) 1 Each Tab.ds.pk 1 EACH PO BID, PKG Calcium Carbonate/Vitamin D3 (Calcium 500 + D Tablet) 1 Each Tablet 1 EACH PO DAILY, TAB Carvedilol (Carvedilol) 12.5 Mg Tablet 12.5 MG PO BID, TAB Cholecalciferol (Vitamin D3) (Vitamin D3) 50 Mcg Tablet 50 MCG PO DAILY, TAB Colchicine (Colcrys) 0.6 Mg Tablet 0.6 MG PO BID, TAB Cyclosporine (Restasis) 1 Each Droperette 1 DROP OU BID, DROP Estradiol Cypionate (Depo-Estradiol) 25 Mg/5 Ml Inj MG IM MONTHLY, VIAL GETS INJECTION FROM DR. MCGRAW'S OFFICE Flaxseed Oil (Flaxseed Oil) 1,000 Mg Capsule 1000 MG PO HS, CAP Folic Acid (Folic Acid) 1 Mg Tablet 1 MG PO DAILY, TAB Golimumab (Simponi) 50 Mg/0.5 Ml Pen.injctr 50 MG SQ MONTHLY, VIAL Hydrocodone/Acetaminophen (Hydrocodone-Acetamin 10-325 mg) 1 Each Tablet 1 EACH PO Q4H PRN for PAIN-MODERATE (5-7), TAB Levothyroxine Sodium (Levothyroxine Sodium) 125 Mcg Tablet 125 MCG PO DAILY, TAB Losartan Potassium (Losartan Potassium) 50 Mg Tablet 50 MG PO DAILY, TAB Magnesium Oxide (Magnesium) 400 Mg Tablet 400 MG PO DAILY, TAB Metolazone (Metolazone) 5 Mg Tablet 5 MG PO DAILY, TAB Nitroglycerin (Nitroglycerin) 0.4 Mg Tab.subl 0.4 MG SL UD PRN for CHEST PAIN, TAB Omeprazole (Omeprazole) 40 Mg Capsule.dr 40 MG PO DAILY, CAP Potassium Bicarbonate/Cit AC (Effer-K 10 Meq Tablet Eff) 10 Meq Tablet.eff 10 MEQ PO BID, TAB TAKES 10MEQ +20MEQ TO EQUAL 30MEQ TWICE DAILY Potassium Bicarbonate/Cit AC (Effer-K 20 Meq Tablet Eff) 20 Meq Tablet.eff 20 MEQ PO BID, TAB TAKES 10MEQ +20MEQ TO EQUAL 30MEQ TWICE DAILY Prednisone (Prednisone) 10 Mg Tab 20 MG PO DAILY PRN for ARTHRITIS PAIN Pyridoxine HCl (Vitamin B-6) 100 Mg Tablet 100 MG PO DAILY, TAB Warfarin Sodium (Warfarin Sodium) 5 Mg Tablet 5 MG PO TUE,MELINDA,SAT, TAB Warfarin Sodium (Warfarin Sodium) 7.5 Mg Tablet 7.5 MG PO SUN,MON,WED,FRI, TAB TAKES 1 & (5MG) TABS Patient Instructions Patient Instructions: Hold warfarin today. Start usual dose of warfarin tomorrow DAVID GRACE MD FACP FACC CCDS May 18, 2020 13:17
[2020-05-18] MEDS ORDERED: KCL 20 MEQ TAB (K-DUR) PO ONE (13:30)
--- NOTE | 2020-05-18 13:44 | CARDIAC CATHETERIZATION ---
DATE OF SERVICE: CARDIAC CATHETERIZATION REPORT The patient is an 79-year-old lady, who has a history of coronary artery disease, has coronary risk factors and has been having symptoms suggestive of new onset of angina. Cardiac catheterization was carried out today after having obtained an informed consent. DESCRIPTION OF PROCEDURE: She was brought to the cardiac catheterization laboratory in a fasting state. Right groin was prepared and draped in the usual sterile fashion. Lidocaine 1% was used for local anesthesia. Modified Seldinger technique was used to advance a 5-Thai sheath in the right femoral artery, 5-Thai JL4 catheter was used for left coronary angiography, 5-Thai JR4 catheter for right coronary angiography, 5-Thai pigtail catheter was used for left heart catheterization and left ventricular angiography. Angiography of the right femoral artery was carried out through the sheath. Following removal of the diagnostic catheters, Mynx was used to achieve hemostasis following sheath removal. The patient tolerated the procedure well. HEMODYNAMICS: Left ventricular end-diastolic pressure following coronary angiography was 8 mmHg. There was no significant pressure gradient on pullback across the aortic valve. Ascending aortic pressure was 146/66 with a mean of 101 mmHg. CORONARY ANGIOGRAPHY: Mild coronary calcification is present. Left main coronary artery, left anterior descending, left circumflex artery exhibits mild plaques. Right coronary artery is dominant and has minimal plaques. LEFT VENTRICULAR ANGIOGRAPHY: Left ventricular angiography was carried out in the right anterior oblique projection. Global left ventricular systolic function is normal. Left ventricular ejection fraction approximately 55% to 60%. CONCLUSIONS: 1. Angiographically mild coronary artery disease. 2. Normal left ventricular end-diastolic pressure. 3. Normal global left ventricular systolic function with an ejection fraction of 55% to 60%. DISCUSSION AND RECOMMENDATIONS: Based on results of the study, it appears appropriate to continue a conservative approach. Continuing risk factor modification is advised. Medication compliance is advised. Outpatient followup is advised. Job ID: [id number] DocumentID: [id number] Dictated Date: 05/18/2020 13:21:57 Drilling Superintendent Date: 05/18/2020 13:43:03 Dictated By: DAVID GRACE MD, MA, FACP, FACC,
[2020-05-18] MEDS ORDERED: RIVA20TA PO (14:02)
--- NOTE | 2020-05-18 14:05 | Discharge Inst-Cardiology ---
Discharge Inst-Cardiac Discharge Medications New Medications: Rivaroxaban (Xarelto) 20 Mg Tablet 20 MG PO DAILY, #90 TAB 3 Refills Continued Medications: Albuterol Sulfate (Ventolin Hfa) 1 Puff Puff 2 PUFF INH Q4H PRN for SHORTNESS OF BREATH, PUFF Apremilast (Otezla) 1 Each Tab.ds.pk 1 EACH PO BID, PKG Calcium Carbonate/Vitamin D3 (Calcium 500 + D Tablet) 1 Each Tablet 1 EACH PO DAILY, TAB Carvedilol (Carvedilol) 12.5 Mg Tablet 12.5 MG PO BID, TAB Cholecalciferol (Vitamin D3) (Vitamin D3) 50 Mcg Tablet 50 MCG PO DAILY, TAB Colchicine (Colcrys) 0.6 Mg Tablet 0.6 MG PO BID, TAB Cyclosporine (Restasis) 1 Each Droperette 1 DROP OU BID, DROP Estradiol Cypionate (Depo-Estradiol) 25 Mg/5 Ml Inj MG IM MONTHLY, VIAL GETS INJECTION FROM DR. MCGRAW'S OFFICE Flaxseed Oil (Flaxseed Oil) 1,000 Mg Capsule 1000 MG PO HS, CAP Folic Acid (Folic Acid) 1 Mg Tablet 1 MG PO DAILY, TAB Golimumab (Simponi) 50 Mg/0.5 Ml Pen.injctr 50 MG SQ MONTHLY, VIAL Hydrocodone/Acetaminophen (Hydrocodone-Acetamin 10-325 mg) 1 Each Tablet 1 EACH PO Q4H PRN for PAIN-MODERATE (5-7), TAB Levothyroxine Sodium (Levothyroxine Sodium) 125 Mcg Tablet 125 MCG PO DAILY, TAB Losartan Potassium (Losartan Potassium) 50 Mg Tablet 50 MG PO DAILY, TAB Magnesium Oxide (Magnesium) 400 Mg Tablet 400 MG PO DAILY, TAB Metolazone (Metolazone) 5 Mg Tablet 5 MG PO DAILY, TAB Nitroglycerin (Nitroglycerin) 0.4 Mg Tab.subl 0.4 MG SL UD PRN for CHEST PAIN, TAB Omeprazole (Omeprazole) 40 Mg Capsule.dr 40 MG PO DAILY, CAP Potassium Bicarbonate/Cit AC (Effer-K 10 Meq Tablet Eff) 10 Meq Tablet.eff 10 MEQ PO BID, TAB TAKES 10MEQ +20MEQ TO EQUAL 30MEQ TWICE DAILY Potassium Bicarbonate/Cit AC (Effer-K 20 Meq Tablet Eff) 20 Meq Tablet.eff 20 MEQ PO BID, TAB TAKES 10MEQ +20MEQ TO EQUAL 30MEQ TWICE DAILY Prednisone (Prednisone) 10 Mg Tab 20 MG PO DAILY PRN for ARTHRITIS PAIN Pyridoxine HCl (Vitamin B-6) 100 Mg Tablet 100 MG PO DAILY, TAB Discontinued Medications: Warfarin Sodium (Warfarin Sodium) 5 Mg Tablet 5 MG PO TUE,MELINDA,SAT, TAB Warfarin Sodium (Warfarin Sodium) 7.5 Mg Tablet 7.5 MG PO SUN,MON,WED,FRI, TAB TAKES 1 & (5MG) TABS Patient Instructions Patient Instructions: Please stop warfarin Start Xarelto 20mg daily (prescription was sent to [facility] pharmacy yesterday as discussed with pt at time of appointment yesterday) POLA MURPHY May 18, 2020 14:05
== END 2020-05-18 16:40 | disposition home or self-care (01) ==
LOC: CATH 13:00 → SDC 13:40 → CATH 16:40
PROVIDERS: ATTEND Internal Medicine Cardiovascular Disease
DX: I25.10 Atherosclerotic heart disease of native coronary artery without angina pectoris (principal); I48.0 Paroxysmal atrial fibrillation; M96.1 Postlaminectomy syndrome, not elsewhere classified; M06.9 Rheumatoid arthritis, unspecified; I11.9 Hypertensive heart disease without heart failure; Z79.51 Long term (current) use of inhaled steroids; Z79.899 Other long term (current) drug therapy; Z79.01 Long term (current) use of anticoagulants; Z91.040 Latex allergy status; Z88.1 Allergy status to other antibiotic agents; Z88.5 Allergy status to narcotic agent; Z88.8 Allergy status to other drugs, medicaments and biological substances; Z95.0 Presence of cardiac pacemaker; Z90.710 Acquired absence of both cervix and uterus; Z83.3 Family history of diabetes mellitus
CPT/HCPCS: 80053; 80061; 85027; 85610; 85730; 87081; 93458; C1760; C1894; 36415

== ENCOUNTER → 2020-06-09 | Outpatient (CLI) | payer MEDICARE, OTHER ==
[~2020-06-09] MED LIST changes: -HEParin (CATH LAB) 2,000 ML IV ONE; -LIDOCAINE 1% INJ 20 ML 20 ML VIAL ONE; -NS IV 1000 ML 1,000 ML IV SCH; -NS IV 1000 ML 1,000 ML ONE; +RIVA20TA PO
--- NOTE | 2020-06-09 11:39 | Diagnostic Imaging Report ---
INDICATION: History of pulmonary nodules. COMPARISON: Chest x-ray of 01/17/[address] scan from 12/23/2018. FINDINGS: The calcified granuloma is again demonstrated in the right lower lung. No new masses or infiltrates have developed. The heart is upper limits of normal. The pulmonary vasculature is normal. The pacemaker on the left shows the leads in good position. No pneumothorax or pleural effusion. No bony abnormalities. IMPRESSION: Stable PA and lateral chest. Dictated by: Dictated on workstation # [id number]
== END ==
LOC: RAD 11:10
PROVIDERS: ATTEND Internal Medicine Critical Care Medicine
DX: R91.8 Other nonspecific abnormal finding of lung field (principal)
CPT/HCPCS: 71046

== ENCOUNTER → 2020-06-17 | Outpatient (CLI) | payer MEDICARE, OTHER ==
--- NOTE | 2020-06-17 13:37 | Diagnostic Imaging Report ---
INDICATION: Palpable abnormality of the right clavicle COMPARISON: None FINDINGS: 2 radiographic views of bilateral clavicles were obtained. Clavicles have a symmetric and normal appearance. There is no evidence of fracture or dislocation. No lytic or blastic bony lesions are seen. Included portions lung apices are clear. IMPRESSION: 1. Unremarkable radiographic exam of the bilateral clavicles. Dictated by: Dictated on workstation # [id number]
== END ==
LOC: RAD FS 13:03
DX: M89.8X1 Other specified disorders of bone, shoulder (principal)

== ENCOUNTER → 2020-12-15 | Outpatient (CLI) | payer MEDICARE, OTHER ==
[~2020-12-15] MED LIST changes: -OMEP40CA27 PO; +OMEP40CA6 PO
== END ==
LOC: CARD 11:00
PROVIDERS: ATTEND Nurse Practitioner Family
DX: I08.2 Rheumatic disorders of both aortic and tricuspid valves (principal)
CPT/HCPCS: 93306

== ENCOUNTER → 2021-10-27 | Outpatient (CLI) | payer MEDICARE, OTHER ==
[~2021-10-27] MED LIST changes: -CHOL200014 PO; +CHOL200052 PO
--- NOTE | 2021-10-27 14:07 | Diagnostic Imaging Report ---
PROCEDURE: US Thyroid. TECHNIQUE: Multiple Real-time grayscale images were obtained of the thyroid in various projections. INDICATION: Followup thyroid nodule. COMPARISON: 04/19/2020. FINDINGS: The right lobe measures 2.8 x 1.2 x 1 cm. The left lobe measures 2.4 x 1 x 0.7 cm. The 3 mm cyst in the upper pole on the left is unchanged. The oval hypoechoic nodule in the inferior portion of the left lobe measuring 1 x 0.5 x 0.4 cm is again noted. No calcification is seen. IMPRESSION: Solid slightly hypoechoic oval nodule in the inferior portion of the left lobe measuring 1 cm in greatest dimension. This is considered mildly suspicious. TI-RADS 3 Dictated by: Dictated on workstation # [id number]
== END ==
LOC: RAD FS 10:57
PROVIDERS: ATTEND Otolaryngology Otolaryngology/Facial Plastic Surgery
DX: E04.1 Nontoxic single thyroid nodule (principal)
CPT/HCPCS: 76536